=== PATIENT | male | born 1955 ===

== ENCOUNTER 2023-03-09 12:27 | Emergency (ER) | payer MEDICARE, SELFPAY ==
[2023-03-09] VITALS (14 sets, daily range): BP systolic 169–231; BP diastolic 71–104; PULSE 80–98; RESP 9–28; TEMP 36.4; O2SAT 97–100; BMI 23.5
--- NOTE | 2023-03-09 12:41 | DI.CT.S_ITS ---
PROCEDURE: CT ANGIO HEAD AND NECK INDICATIONS: dizzy, TECHNIQUE: After the administration of intravenous contrast, 1 mm thick sections acquired from the aortic arch through the [place] of [place]. 3-dimensional uwwxxca-bdsiefvli-ooxbfycmzg (MIP) and/or volume rendering reformats were acquired of the central intracranial vasculature and neck separately. For radiation dose reduction, the following was used: automated exposure control, adjustment of mA and/or kV according to patient size. COMPARISON: [facility], CT, CT STROKE, 03/09/2023, 12:54. FINDINGS: Image quality: Diagnostic. BRAIN: CSF spaces: Ventricles are normal in size and shape. Basal cisterns are patent. No extra-axial fluid collections. Brain: Note is made of symmetric calcification within the basal ganglia and within the medial cerebellum on both sides, which is considered to be benign. Skull and face: Calvarium and facial bones appear intact, without suspicious lesions. Orbits appear normal. Sinuses: Sinuses and mastoids are clear. HEAD CT ANGIOGRAPHY: Anterior circulation: Intracranial internal carotid arteries demonstrate atherosclerotic irregularity and calcification, with approximately 50% narrowing seen on each side.. The flow within the paired anterior cerebral arteries is normal and symmetric. The flow within the middle cerebral arteries is normal and symmetric. The anterior communicating artery is seen. No aneurysms are seen. Posterior circulation: Visualized portions of the vertebral arteries demonstrate normal caliber, and join to form a normal appearing basilar artery. Flow within the posterior cerebral arteries is normal and symmetric. No aneurysms are seen. NECK CT ANGIOGRAPHY: Carotid system: The great vessels demonstrate a conventional anatomy as they arise from the aortic arch. Atherosclerotic calcification is noted. The origins of the common carotid arteries appear patent. However, there is dense calcification seen involving the left subclavian artery proximally, with 70-80% narrowing. The common carotid arteries demonstrate normal caliber and courses. Atherosclerotic calcification is noted. Relatively prominent atherosclerotic calcification can be seen involving the carotid bifurcation regions. There is approximately 80% stenosis seen involving the right proximal internal carotid artery. There is approximately 70% stenosis involving the left proximal internal carotid artery. The more distal internal carotid arteries demonstrate normal course and caliber. Posterior circulation: There is prominent calcification seen involving the proximal left vertebral artery, with approximately 70% narrowing. Approximately 70% narrowing can be seen involving the right proximal vertebral artery, with [id number] atherosclerotic calcification. The more superior extracranial portions of both vertebral arteries also demonstrate normal courses and calibers. Soft tissues: Visualized neck soft tissues demonstrate no suspicious abnormalities. Bones: No suspicious bony lesions. Visualized cervical spine appears normally aligned. Moderate cervical spine degenerative change can be seen. IMPRESSION: Focal narrowings can be seen involving both carotid bifurcation regions, approximately 80% on the right and approximately 70% on the left. Approximately 70% narrowing can be seen involving the proximal vertebral arteries. Dense calcification can be seen involving the left proximal vertebral artery. There is dense calcification seen involving the proximal left subclavian artery, with 70-80% narrowing. No significant intracranial arterial abnormality is seen. Additional findings: Moderate cervical spine degenerative change Any quantitative measurements of stenosis were performed using NASCET criteria. Dictated by: Sam Leger M.D. on 03/09/2023 at 12:06 Approved by: Sam Leger M.D. on 03/09/2023 at 12:13
--- NOTE | 2023-03-09 12:41 | DI.CT.S_ITS ---
PROCEDURE: CT STROKE INDICATIONS: dizzy, TECHNIQUE: Noncontrast 4.5 mm thick angled axial sections acquired from the foramen magnum to the vertex, with coronal reformats. For radiation dose reduction, the following was used: automated exposure control, adjustment of mA and/or kV according to patient size. COMPARISON: None. FINDINGS: Image quality: Excellent. CSF spaces: Basal cisterns are patent. No extra-axial fluid collections. Ventricles are normal in size and shape. Brain: No midline shift. No intracranial masses or hemorrhage. Liu-white matter interface is normal. Small focus of hypoattenuation in the right frontal lobe. Calcifications in the basal ganglia and bilateral cerebellum. Skull and face: Calvarium and visualized facial bones are intact, without suspicious lesions. Sinuses: Visualized sinuses and mastoids are clear. IMPRESSION: No hemorrhagic infarct. Small focus of hypoattenuation in the right frontal lobe, may indicate evolving or remote infarct. Calcifications of the basal ganglia and cerebellum, probably due to underlying metabolic disorder. Findings discussed with Dr. Jha on 03/09/2023 at 1:09 p.m.. This study fulfills neurological imaging criteria for inclusion or exclusion of acute stroke therapies based on available published neurological imaging guidelines. Dictated by: Sammy Rogers M.D. on 03/09/2023 at 13:04 Approved by: Sammy Rogers M.D. on 03/09/2023 at 13:09
--- NOTE | 2023-03-09 12:49 | PC.NURSE ---
pt states 11:15 was going up and down a ladder on side of his house. Started getting diaphoretic and having trouble finding words. TIA in the past in [facility]. Takes Plavix and a statin daily. h/o pheochromocytoma removal in 1995. Reports being diabetic on/off in his life and is not currently on DM meds however BG for EMS was 395--states he drank OJ and ate mcdSonoss breakfast this morning which is rare for him. last TIA he had his glucose was also very elevated. No weakness endorsed. NIH 0 LAMS 0, swallow screen passed. equal cull grader/pushes. AAOx3 and no slurred speech appreciated.
[2023-03-09 12:52] LABS: Add Manual Diff / Slide Review NO; Basophils Absolute Auto 0 /uL (0-100); Basophils Percent Auto 0.5 % (0-2); Eosinophils Absolute Auto 100 /uL (0-450); Eosinophils Percent Auto 1.2 % (2-4); Hematocrit 39.5 % (41-53); Hemoglobin 13.1 g/dL (13.5-17.5); Lymphocytes Absolute Auto 900 /uL (1100-4500); Lymphocytes Percent Auto 20.1 % (25-40); Mean Corpuscular HGB Conc 33.2 % (30-36); Mean Corpuscular Hemoglobin 28.9 PG (26-34); Mean Corpuscular Volume 86.8 fL (80-100); Monocytes Absolute Auto 200 /uL (0-900); Monocytes Percent Auto 4.5 % (3-14); Neutrophils Absolute Auto 3100 /uL (1500-7000); Neutrophils Percent Auto 73.7 % (50-75); Platelet Count 249 X10^3/uL (150-400); Red Blood Cell Count 4.54 X10^6/uL (4.5-5.9); Red Cell Distribution Width 13.1 % (11.6-14.8); White Blood Cell Count 4.2 X10^3/uL (4.5-11.0)
[2023-03-09 12:55] LABS: Prothrombin Time 11.3 SECONDS (10.1-12.7)
--- NOTE | 2023-03-09 12:55 | ED.NEUROSD ---
HPI - Neuro Symptoms/Deficit General Chief Complaint: Neuro Symptoms/Deficit Stated Complaint: Dizzy, Slurred Speech Time Seen by Provider: 03/09/23 12:41 Source: patient, EMS, RN notes reviewed and old records reviewed Mode of arrival: EMS Limitations: no limitations History of Present Illness HPI Narrative: This is a 67-year-old male with history of prior TIA on Plavix and atorvastatin daily with a remote history of pheochromocytoma. Patient states today about 1125 he was working outdoors up and down a ladder when he got really sweaty he felt very lightheaded like he might pass out and had sort of greenish discoloration of his vision. He states he would about 10 minutes of difficulty with speech. Patient states that he had difficulty texting on his phone he did not appreciate weakness right versus left. He states that he did have difficulty getting his words out and slurred speech. Patient states no headache, no vision changes. He states symptoms totally resolved after about 10-15 minutes. He states he had a very similar event several years ago where he was at when asked she was there for 3 days followed up with their stroke clinic and that was when he was placed on Plavix and atorvastatin. Patient states no fevers or chills. No chest pain or shortness of breath, no nausea or vomiting, no diarrhea constipation, no dysuria urgency or frequency. No difficulty with ambulation. He did not appreciate numbness tingling weakness of his extremities. Patient states he has not had recurrent episodes since then. He had a prior history 1995 for pheochromocytoma. Patient denies any drug allergies. No tobacco, alcohol or illicit accept for once yearly smoking. With additional information patient notes he has a has not seen a physician in 3 or 4 years accept for an urgent care visit he has not been getting regular labs. He is noted to be hyperglycemic he states he used to insulin and was weaned down by his physician and ultimately stopped. He states he thinks he may have had elevated creatinine in the past but he does not know if he has a normal creatinine or not. On Anticoagulants: Yes (plavix) Related Data Allergies Allergy/AdvReac Type Severity Reaction Status Date / Time No Known Drug Allergies Allergy Verified 03/09/23 15:27 Review of Systems Review of Systems ROS Unobtainable: All systems reviewed & are unremarkable except as noted in HPI and below Hematologic/Lymphatic On Anticoagulants: Yes (plavix) Exam Narrative Exam Narrative: GEN: well nourished, well appearing 3, alert and oriented x mild, patient appears to be in no acute distress. HEENT: Atraumatic, pupils are equal round reactive to light, extraocular movements are intact, nares are clear, TMs are clear with no fluid, there is no conjunctival pallor. Throat is clear without any exudates, erythema, tonsillar enlargement or uvular deviation, no facial droop. HEART: Regular rate and rhythm without murmur, clicks, rubs. No carotid bruits, pulses are equal in upper and lower extremities LUNGS:Lungs clear to auscultation, no wheezes, rales, crackles, chest moves symmetrically ABD:bowel sounds normal, soft, non-tender, no guarding, rebound, rigidity, no masses noted, no hepatosplenomegaly :No CVA tenderness MSCL: Non-tender, no muscle atrophy, muscles strength 5/5 upper and lower extremities, full range of motion, normal gait NEURO:CN 2-12 intact, sensation normal, finger nose finger test normal, heel brewer test normal, no dysarthria or aphasia SKIN: No rash, erythema or other skin changes Initial Vital Signs Initial Vital Signs: Vital Signs Pulse Rate 80 03/09/23 12:40 Respiratory Rate 24 03/09/23 12:40 Pulse Oximetry 100 03/09/23 12:40 Scores NIH Stroke Scale Level of Conciousness: Alert, keenly responsive Ask month/age: Answers both questions correctly. Open/close eyes, close hand: Performs both tasks correctly Best gaze horizontal: Normal Visual jaffe: No visual loss Facial palsy: Normal symetrical movement Left arm drift: No drift for full 10 sec Right arm drift: No drift for full 10 sec Left leg drift: No drift for full 5 sec Right leg drift: No drift for full 5 sec Limb ataxia: Absent Sensory on face/arms/legs: Normal, no sensory loss Best language: No aphasia, normal Dysarthria: Normal Extinction or inattention: No abnormality Total NIH Stroke scale score: 0 Course Orders Ordered: Discontinued Medications Aspirin (Aspirin 81 Mg Chew Tab) 324 mg PO NOW ONE Stop: 03/09/23 13:28 Last Admin: 03/09/23 13:42 Dose: 324 mg Documented By: MADAY Clopidogrel Bisulfate (Clopidogrel 75 Mg Tablet) 300 mg PO NOW ONE Stop: 03/09/23 15:56 Last Admin: 03/09/23 16:04 Dose: Not Given Documented By: SB Sodium Chloride (Normal Saline 0.9%) 1,000 mls @ 150 mls/hr IV CONT JOHNNY Last Admin: 03/09/23 13:17 Dose: Not Given Documented By: CTS Sodium Chloride (Normal Saline 0.9%) 1,000 mls @ 1,000 mls/hr IV BOLUS ONE Stop: 03/09/23 14:25 Last Infusion: 03/09/23 15:18 Dose: 0 mls/hr Documented By: Admin: 03/09/23 13:43 Dose: 1,000 mls/hr Documented By: MADAY Vital Signs Vital signs: Vital Signs - 8 hr 03/09/23 12:45 03/09/23 12:40 03/09/23 13:01 Temperature 97.6 F Pulse Rate 82 80 85 Respiratory Rate 16 24 18 Blood Pressure 199/86 H Pulse Oximetry 99 100 100 Oxygen Delivery Method Room Air 03/09/23 13:02 03/09/23 13:02 03/09/23 13:30 Temperature Pulse Rate 86 Respiratory Rate 17 Blood Pressure 169/81 H 193/91 H Pulse Oximetry 99 Oxygen Delivery Method 03/09/23 13:30 03/09/23 14:00 03/09/23 14:01 Temperature Pulse Rate 88 91 H Respiratory Rate 17 10 L Blood Pressure 182/71 H Pulse Oximetry 99 100 Oxygen Delivery Method 03/09/23 14:01 03/09/23 14:50 03/09/23 14:52 Temperature Pulse Rate 91 H 91 H 90 Respiratory Rate 9 L 19 Blood Pressure Pulse Oximetry 100 100 100 Oxygen Delivery Method Room Air 03/09/23 14:52 03/09/23 15:00 03/09/23 15:00 Temperature Pulse Rate 89 Respiratory Rate 18 Blood Pressure 196/88 H 193/90 H Pulse Oximetry 100 Oxygen Delivery Method Room Air 03/09/23 15:15 03/09/23 15:15 03/09/23 15:18 Temperature Pulse Rate 90 Respiratory Rate 15 Blood Pressure 208/85 H 209/98 H Pulse Oximetry 100 Oxygen Delivery Method 03/09/23 15:18 Temperature Pulse Rate 89 Respiratory Rate 17 Blood Pressure Pulse Oximetry 100 Oxygen Delivery Method Room Air MDM - Neuro Symptoms/Deficit Lab Data 03/09/23 12:25 03/09/23 12:25 Labs: Lab Results 03/09/23 03/09/23 03/09/23 Range/Units 12:25 12:25 12:25 WBC 4.2 L (4.5-11.0) X10^3/uL RBC 4.54 (4.5-5.9) X10^6/uL Hgb 13.1 L (13.5-17.5) g/dL Hct 39.5 L (41-53) % MCV 86.8 (80-100) fL MCH 28.9 (26-34) PG MCHC 33.2 (30-36) % RDW 13.1 (11.6-14.8) % Plt Count 249 (150-400) X10^3/uL Neut % (Auto) 73.7 (50-75) % Lymph % (Auto) 20.1 L (25-40) % [place] % (Auto) 4.5 (3-14) % Eos % (Auto) 1.2 L (2-4) % Baso % (Auto) 0.5 (0-2) % Neut # (Auto) 3100 (2550-7115) /uL Lymph # (Auto) 900 L (2333-8747) /uL [place] # (Auto) 200 (0-900) /uL Eos # (Auto) 100 (0-450) /uL Baso # (Auto) 0 (0-100) /uL PT 11.3 (10.1-12.7) SECONDS INR 1.0 (0.9-1.3) APTT 34 (26-36) SECONDS Sodium 132 L (137-145) mmol/L Potassium 5.1 (3.4-5.1) mmol/L Chloride 100 (98-107) mmol/L Carbon Dioxide 23 (22-32) mmol/L BUN 28 H (9-20) mg/dL Creatinine 2.13 H (0.66-1.25) mg/dL Estimated GFR 34 L (>60) mL/min BUN/Creatinine Ratio 13.1 (6-22) Glucose 397 H (80-110) mg/dL Calcium 8.4 (8.4-10.2) mg/dL Total Bilirubin 0.6 (0.2-1.3) mg/dL AST 29 (17-59) IU/L ALT 28 (<50) IU/L Alkaline Phosphatase 88 (38-126) U/L Total Creatine Kinase 96 (55-170) U/L Troponin I 0.016 (0.01-0.034) ng/mL Total Protein 6.6 (6.3-8.2) g/dL Albumin 3.8 (3.5-5.0) g/dL Globulin 2.8 (1.7-4.1) g/dL Albumin/Globulin Ratio 1.4 (1.0-2.8) Urine Color Urine Appearance Urine pH (4.5-8.0) Ur Specific [place] (1.000-1.035) Urine Protein (Negative) Urine Glucose (UA) (Negative) g/dL Urine Ketones (NEGATIVE) Urine Occult Blood (Negative) Urine Nitrate (Negative) Urine Bilirubin (NEGATIVE) Urine Urobilinogen (0.2) E.U./dL Ur Leukocyte Esterase (NEGATIVE) Urine RBC (0-5/HPF) Urine WBC (0-5/HPF) Ur Squamous Epith Cells (0-5/HPF) Urine Bacteria (None) Ur Culture Indicated? Ethyl Alcohol < 10 ( - 10) mg/dL SARS-CoV-2 (PCR) (Negative) 03/09/23 03/09/23 Range/Units 13:48 14:07 WBC (4.5-11.0) X10^3/uL RBC (4.5-5.9) X10^6/uL Hgb (13.5-17.5) g/dL Hct (41-53) % MCV (80-100) fL MCH (26-34) PG MCHC (30-36) % RDW (11.6-14.8) % Plt Count (150-400) X10^3/uL Neut % (Auto) (50-75) % Lymph % (Auto) (25-40) % [place] % (Auto) (3-14) % Eos % (Auto) (2-4) % Baso % (Auto) (0-2) % Neut # (Auto) (2353-6404) /uL Lymph # (Auto) (9260-5719) /uL [place] # (Auto) (0-900) /uL Eos # (Auto) (0-450) /uL Baso # (Auto) (0-100) /uL PT (10.1-12.7) SECONDS INR (0.9-1.3) APTT (26-36) SECONDS Sodium (137-145) mmol/L Potassium (3.4-5.1) mmol/L Chloride (98-107) mmol/L Carbon Dioxide (22-32) mmol/L BUN (9-20) mg/dL Creatinine (0.66-1.25) mg/dL Estimated GFR (>60) mL/min BUN/Creatinine Ratio (6-22) Glucose (80-110) mg/dL Calcium (8.4-10.2) mg/dL Total Bilirubin (0.2-1.3) mg/dL AST (17-59) IU/L ALT (<50) IU/L Alkaline Phosphatase (38-126) U/L Total Creatine Kinase (55-170) U/L Troponin I (0.01-0.034) ng/mL Total Protein (6.3-8.2) g/dL Albumin (3.5-5.0) g/dL Globulin (1.7-4.1) g/dL Albumin/Globulin Ratio (1.0-2.8) Urine Color Yellow Urine Appearance Clear Urine pH 5.5 (4.5-8.0) Ur Specific [place] 1.010 (1.000-1.035) Urine Protein 2+ H (Negative) Urine Glucose (UA) 3+ H (Negative) g/dL Urine Ketones Negative (NEGATIVE) Urine Occult Blood Trace-intact (Negative) Urine Nitrate Negative (Negative) Urine Bilirubin Negative (NEGATIVE) Urine Urobilinogen 0.2 (0.2) E.U./dL Ur Leukocyte Esterase Negative (NEGATIVE) Urine RBC 1-5/hpf (0-5/HPF) Urine WBC None seen (0-5/HPF) Ur Squamous Epith Cells 0-1 /hpf (0-5/HPF) Urine Bacteria None seen (None) Ur Culture Indicated? Cult not indicated Ethyl Alcohol ( - 10) mg/dL SARS-CoV-2 (PCR) Negative (Negative) Point of Care Testing Glucose POC [address] scan - head: Radiologist's Impression: Dr. Sammy Rogers no acute change does have calcifications. [address] [address] [address] Scan Report Signed Patient: Johnnie Duenas MR#: [id number] : 1955 Acct:[id number] Age/Sex: 67 / M Date of Service: 03/09/23 Loc: ED Accession Number: [id number] ?? Procedure: CT Stroke Ordering Provider: Lucy Jha D.O. PROCEDURE:? CT STROKE ? INDICATIONS:? dizzy, ? TECHNIQUE:? Noncontrast 4.5 mm thick angled axial sections acquired from the foramen magnum to the vertex, with coronal reformats.? For radiation dose reduction, the following was used:? automated exposure control, adjustment of mA and/or kV according to patient size.? ? COMPARISON:? None. ? FINDINGS:? Image quality:? Excellent.? ? CSF spaces:? Basal cisterns are patent.? No extra-axial fluid collections.? Ventricles are normal in size and shape.? ? Brain:? No midline shift.? No intracranial masses or hemorrhage.? Liu-white matter interface is normal.? Small focus of hypoattenuation in the right frontal lobe.? Calcifications in the basal ganglia and bilateral cerebellum. ? Skull and face:? Calvarium and visualized facial bones are intact, without suspicious lesions.? ? Sinuses:? Visualized sinuses and mastoids are clear.? ? IMPRESSION:? No hemorrhagic infarct. ? Small focus of hypoattenuation in the right frontal lobe, may indicate evolving or remote infarct. ? Calcifications of the basal ganglia and cerebellum, probably due to underlying metabolic disorder. ? Findings discussed with Dr. Jha on 03/09/2023 at 1:09 p.m.. ? This study fulfills neurological imaging criteria for inclusion or exclusion of acute stroke therapies based on available published neurological imaging guidelines.? ? ? Dictated by: Sammy Rogers M.D. on 03/09/2023 at 13:04 ? ? Approved by: Sammy Rogers M.D. on 03/09/2023 at 13:09?? CTA - brain/neck: Radiologist's Impression: [address] [address] [address] Scan Report Signed Patient: Johnnie Duenas MR#: [id number] : 1955 Acct:[id number] Age/Sex: 67 / M Date of Service: 03/09/23 Loc: ED Accession Number: [id number] ?? Procedure: CT angio head and neck Ordering Provider: Lucy Jha D.O. PROCEDURE:? CT ANGIO HEAD AND NECK ? INDICATIONS:? dizzy, ? TECHNIQUE:? After the administration of intravenous contrast, 1 mm thick sections acquired from the aortic arch through the [place] of [place].? 3-dimensional yqmysfs-etvkgqiws-pwwhirsbxa (MIP) and/or volume rendering reformats were acquired of the central intracranial vasculature and neck separately. For radiation dose reduction, the following was used:? automated exposure control, adjustment of mA and/or kV according to patient size.? ? COMPARISON:? [facility], CT, CT STROKE, 03/09/2023, 12:54. ? FINDINGS:? Image quality:? Diagnostic.? ? BRAIN:? CSF spaces:? Ventricles are normal in size and shape.? Basal cisterns are patent.? No extra-axial fluid collections.? ? Brain:? Note is made of symmetric calcification within the basal ganglia and within the medial cerebellum on both sides, which is considered to be benign. ? Skull and face:? Calvarium and facial bones appear intact, without suspicious lesions.? Orbits appear normal.? ? Sinuses:? Sinuses and mastoids are clear.? ? HEAD CT ANGIOGRAPHY:? Anterior circulation:? Intracranial internal carotid arteries demonstrate atherosclerotic irregularity and calcification, with approximately 50% narrowing seen on each side..? The flow within the paired anterior cerebral arteries is normal and symmetric.? The flow within the middle cerebral arteries is normal and symmetric.? The anterior communicating artery is seen.? No aneurysms are seen.? ? Posterior circulation:? Visualized portions of the vertebral arteries demonstrate normal caliber, and join to form a normal appearing basilar artery.? Flow within the posterior cerebral arteries is normal and symmetric.? No aneurysms are seen.? ? NECK CT ANGIOGRAPHY:? Carotid system:? The great vessels demonstrate a conventional anatomy as they arise from the aortic arch.? Atherosclerotic calcification is noted.? The origins of the common carotid arteries appear patent.? However, there is dense calcification seen involving the left subclavian artery proximally, with 70-80% narrowing.? The common carotid arteries demonstrate normal caliber and courses.? Atherosclerotic calcification is noted.? ? Relatively prominent atherosclerotic calcification can be seen involving the carotid bifurcation regions.? There is approximately 80% stenosis seen involving the right proximal internal carotid artery.? There is approximately 70% stenosis involving the left proximal internal carotid artery. The more distal internal carotid arteries demonstrate normal course and caliber.? ? Posterior circulation:? There is prominent calcification seen involving the proximal left vertebral artery, with approximately 70% narrowing.? Approximately 70% narrowing can be seen involving the right proximal vertebral artery, with [id number] atherosclerotic calcification.? The more superior extracranial portions of both vertebral arteries also demonstrate normal courses and calibers.? ? Soft tissues:? Visualized neck soft tissues demonstrate no suspicious abnormalities.? ? Bones:? No suspicious bony lesions.? Visualized cervical spine appears normally aligned.? Moderate cervical spine degenerative change can be seen. ? ? IMPRESSION:? Focal narrowings can be seen involving both carotid bifurcation regions, approximately 80% on the right and approximately 70% on the left. ? Approximately 70% narrowing can be seen involving the proximal vertebral arteries.? Dense calcification can be seen involving the left proximal vertebral artery. ? There is dense calcification seen involving the proximal left subclavian artery, with 70-80% narrowing.? ? No significant intracranial arterial abnormality is seen. ? ? ? Additional findings:? Moderate cervical spine degenerative change ? Any quantitative measurements of stenosis were performed using NASCET criteria.? ? ? Dictated by: Sam Leger M.D. on 03/09/2023 at 12:06 ? ? Approved by: Sam Leger M.D. on 03/09/2023 at 12:13?? MR brain: Radiologist's Impression: Johnnie Duenas??67??M??1955 ? Allergy/Adv: No Known Drug Allergies Close Brain MRI (Signed) Andrez Granado - 03/09/23 Renal Ultrasound (Signed) Sammy Rogers - 03/09/23 Head/Neck CTA (Signed) Sam Leger - 03/09/[address] (Signed) Sammy Rogers - 03/09/23 Launch?[address] [address] Magnetic Resonance Report Signed Patient: Johnnie Duenas MR#: [id number] : 1955 Acct:[id number] Age/Sex: 67 / M Date of Service: 03/09/23 Loc: ED Accession Number: [id number] ?? Procedure: MR head/brain wo con Ordering Provider: Lucy Jha D.O. PROCEDURE:? MR HEAD/BRAIN WO CON ? INDICATIONS:? speech changes, vision changes resolved. ? TECHNIQUE:? Non-contrast axial T1 spin echo, axial T2 fast spin echo, sagittal and axial FLAIR, coronal T2 fast spin echo, axial gradient echo, axial diffusion and ADC through the brain.? ? COMPARISON:? [facility], CT, CT ANGIO HEAD AND NECK, 03/09/2023, 12:54. ? FINDINGS:? Image quality:? Excellent.? ? CSF spaces:? Ventricles appear symmetric in size and shape.? Basal cisterns are patent.? No extra-axial fluid collections.? ? Brain:? No intracranial bleeds or mass effects.? There is cerebral volume loss for age.? There are [id number] periventricular and deep white matter chronic small vessel ischemic changes.? Brainstem appears normal.? Diffusion-weighted images show no acute ischemic insults.? Very small old focal posterior right frontal right MCA distribution infarct.? Normal intravascular flow voids are present.? ? Skull and face:? Calvarial bone marrow is normal in signal.? Orbits are normal.? ? Sinuses:? Sinuses and mastoids are clear.? ? IMPRESSION:? ? 1. 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 ? 2. Age-related volume loss and [id number] small vessel ischemic change. ? 3. No acute intracranial process.? ? ? Dictated by: Andrez Granado M.D. on 03/09/2023 at 14:47 ? ? Approved by: Andrez Granado M.D. on 03/09/2023 at 14:50? renal US: Radiologist's Impression: Close Brain MRI (Signed) Andrez Granado - 03/09/23 Renal Ultrasound (Signed) Sammy Rogers - 03/09/23 Head/Neck CTA (Signed) Sam Leger - 03/09/[address] (Signed) Sammy Rogers - 03/09/23 Launch?Image [address] [address] Ultrasound Report Signed Patient: Johnnie Duenas MR#: [id number] : 1955 Acct:[id number] Age/Sex: 67 / M Date of Service: 03/09/23 Loc: ED Accession Number: [id number] ?? Procedure: US renal complete Ordering Provider: Lucy Jha D.O. PROCEDURE:? US RENAL COMPLETE ? INDICATIONS:? ABNORMAL RENAL LABS. ?ANNABEL VS CKD. H/O PHEOCHROMOCYTOMA ? TECHNIQUE:? Real-time scanning was performed of the kidneys and bladder, with image documentation.? ? COMPARISON:? None. ? FINDINGS:? ? Kidneys:? Kidneys are normal in size.? Right kidney measures 9.0 cm long; left kidney measures 11.0 cm long.? Right renal cortical thickness is 1.9 cm; left renal cortical thickness is 1.4 cm.? Renal cortical echotexture is normal.? No hydronephrosis or nephrolithiasis.? Lobulated contour.? On the midpole of the right kidney, there is a heterogeneous lobulation, measuring 2.1 x 2.6 x 1.7 cm, best seen on the cine clips. No complex renal cystic lesions which require follow-up. ? Bladder:? Pre-void bladder volume is 426 mL.? Post-void residual is 42 mL.? Pre-void images demonstrate no intraluminal masses or stones.? On pre-void images, bilateral ureteral jets are noted with color Doppler interrogation.? (Of note, ureteral jets may not be detectable in up to 25% of cases due to insufficient differences in specific gravity between ureteral and bladder urine).? ? Miscellaneous:? No free pelvic fluid.? ? IMPRESSION:? No hydronephrosis. ? On the midpole of the right kidney, there is a heterogeneous lobulation, measuring 2.1 x 2.6 x 1.7 cm.? This probably represents normal renal parenchyma, although underlying mass is not entirely excluded.? Recommend outpatient CT or MRI for confirmation (renal mass protocol). ? ? Dictated by: Sammy Rogers M.D. on 03/09/2023 at 14:36 ? ? Approved by: Sammy Rogers M.D. on 03/09/2023 at 14:41?? ECG Data Attestation: I personally reviewed and interpreted this ECG as follows: Interpretation: Sinus rhythm first-degree AV block rate 80 9p are 214 QRS of 98 QTC 462[address] No acute ST elevation depression. MDM Narrative Medical decision making narrative: This is a 67-year-old male on Plavix daily who had what sounds like a TIA episode symptoms have resolved. Patient states very similar to an episode he had 3 years ago, remote history of pheochromocytoma 1995 with surgical treatment. Patient is on Plavix and atorvastatin, he is hyperglycemic and hypertensive today. Patient is not current tPA candidate secondary to complete resolution of symptoms Initial non-con head CT is negative, CT angio showed focal narrowings involving both carotid bifurcations regions 80% on right, 70% on left, approximately 70% narrowing involving the proximal vertebral arteries and dense calcification involving the left proximal vertebral artery. Dense calcifications seen involving the proximal left subclavian artery with 70 80% narrowing. No significant intracranial arterial abnormality is seen. MR shows old infarct but no acute or subacute infarct today. Renal ultrasound was obtained secondary to elevated creatinine, per patient he has maybe had waxing and waning renal function in the past but has not followed at least 2-3 years with his labs. On the midpole right kidney there is a heterogeneous lobulation measuring 2.1 x 2.6 x 1.7 cm probably represents normal renal parenchyma although underlying mass not entirely excluded and should be followed up. Reviewed these findings with patient. Neurology, [facility]: They recommend revascularization if patient is not agreeable would recommend dual antiplatelet therapy aspirin 324 mg today along with 100 mg Plavix followed by 81 mg daily and 75 mg of Plavix times 21 days. Goal blood pressure is less than 220/110 with slow decreasing over 24 hours and ultimately over 1-2 weeks. Spoke with patient reviewed all of his findings today. He is agreeable for intervention but states he has to take care of things at home first. He has family/friend at bedside who offered to take care of these activities. Patient politely declines. He would like to go to facility for revascularization he is open to this and additional intervention but states he will drive by private auto. He is clear that this is against medical advice and if his blood pressure becomes significantly out of control or he has additional stroke episode while transporting could have significant disability or . Patient expresses his understanding states he did this last time he had a stroke. He would prefer to self presented the facility rather than staying overnight or transported via ambulance or airlift. Patient was discharged with packet of his information. I did recontact neurology to update that patient is agreeable for revascularization but does not wish to be transported via EMS and has some things he needs to take it at home before he presents. They asked that he present to [facility] ED. Did discuss that this is a left with against medical advice and then he is not being transferred at this time. Patient and friend at bedside both expressed their understanding. Discharge Plan Departure Patient Disposition: Left Against Medical Advice Clinical Impression: TIA (transient ischemic attack), Creatinine elevation, Hyperglycemia, Renal mass, right Activity Restrictions/Additional Instructions: You are not being transferred today and it is recommended that you be by EMS to [facility] for revascularization. You have elected to leave against medical advice, there is a chance you could have a serious stroke and have permanent disability or while you are getting herself to the other hospital and it is not recommended to go by private auto. I did speak with Neurology, they are aware of your plan they ask that [facility] [facility]. Please take the packet that is provided along with the discs of imaging with you. Please go to the nearest facility if you have sudden worsening symptoms, loss of consciousness, chest pain, shortness of breath, persistent vomiting or other new or concerning changes. Stand Alone Forms: Against Medical Advice
[2023-03-09 12:57] LABS: PTT Partial Thromboplastin Tim 34 SECONDS (26-36)
[2023-03-09 13:21] LABS: Alanine Aminotransferase 28 IU/L (<50); Albumin 3.8 g/dL (3.5-5.0); Albumin Globulin Ratio 1.4 (1.0-2.8); Alkaline Phosphatase 88 U/L (38-126); Aspartate Aminotransferase 29 IU/L (17-59); BUN Creatinine Ratio 13.1 (6-22); Bilirubin Total 0.6 mg/dL (0.2-1.3); Blood Urea Nitrogen 28 mg/dL (9-20); Calcium 8.4 mg/dL (8.4-10.2); Carbon Dioxide 23 mmol/L (22-32); Chloride 100 mmol/L (98-107); Creatine Kinase 96 U/L (55-170); Estimated Glomerular Filt Rate 34 mL/min (>60); Ethanol (ETOH) < 10 mg/dL; Globulin 2.8 g/dL (1.7-4.1); Glucose 397 mg/dL (80-110); HEMOLYSIS < 15 (0-50); Potassium 5.1 mmol/L (3.4-5.1); Sodium 132 mmol/L (137-145); Total Protein 6.6 g/dL (6.3-8.2)
--- NOTE | 2023-03-09 13:26 | DI.US.S_ITS ---
PROCEDURE: US RENAL COMPLETE INDICATIONS: ABNORMAL RENAL LABS. ?ANNABEL VS CKD. H/O PHEOCHROMOCYTOMA TECHNIQUE: Real-time scanning was performed of the kidneys and bladder, with image documentation. COMPARISON: None. FINDINGS: Kidneys: Kidneys are normal in size. Right kidney measures 9.0 cm long; left kidney measures 11.0 cm long. Right renal cortical thickness is 1.9 cm; left renal cortical thickness is 1.4 cm. Renal cortical echotexture is normal. No hydronephrosis or nephrolithiasis. Lobulated contour. On the midpole of the right kidney, there is a heterogeneous lobulation, measuring 2.1 x 2.6 x 1.7 cm, best seen on the cine clips. No complex renal cystic lesions which require follow-up. Bladder: Pre-void bladder volume is 426 mL. Post-void residual is 42 mL. Pre-void images demonstrate no intraluminal masses or stones. On pre-void images, bilateral ureteral jets are noted with color Doppler interrogation. (Of note, ureteral jets may not be detectable in up to 25% of cases due to insufficient differences in specific gravity between ureteral and bladder urine). Miscellaneous: No free pelvic fluid. IMPRESSION: No hydronephrosis. On the midpole of the right kidney, there is a heterogeneous lobulation, measuring 2.1 x 2.6 x 1.7 cm. This probably represents normal renal parenchyma, although underlying mass is not entirely excluded. Recommend outpatient CT or MRI for confirmation (renal mass protocol). Dictated by: Sammy Rogers M.D. on 03/09/2023 at 14:36 Approved by: Sammy Rogers M.D. on 03/09/2023 at 14:41
--- NOTE | 2023-03-09 13:27 | DI.MRI.S_ITS ---
PROCEDURE: MR HEAD/BRAIN WO CON INDICATIONS: speech changes, vision changes resolved. TECHNIQUE: Non-contrast axial T1 spin echo, axial T2 fast spin echo, sagittal and axial FLAIR, coronal T2 fast spin echo, axial gradient echo, axial diffusion and ADC through the brain. COMPARISON: [facility], CT, CT ANGIO HEAD AND NECK, 03/09/2023, 12:54. FINDINGS: Image quality: Excellent. CSF spaces: Ventricles appear symmetric in size and shape. Basal cisterns are patent. No extra-axial fluid collections. Brain: No intracranial bleeds or mass effects. There is cerebral volume loss for age. There are [id number] periventricular and deep white matter chronic small vessel ischemic changes. Brainstem appears normal. Diffusion-weighted images show no acute ischemic insults. 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 Normal intravascular flow voids are present. Skull and face: Calvarial bone marrow is normal in signal. Orbits are normal. Sinuses: Sinuses and mastoids are clear. IMPRESSION: 1. 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 2. Age-related volume loss and [id number] small vessel ischemic change. 3. No acute intracranial process. Dictated by: Andrez Granado M.D. on 03/09/2023 at 14:47 Approved by: Andrez Granado M.D. on 03/09/2023 at 14:50
[2023-03-09 13:32] LABS: Troponin I 0.016 ng/mL (0.01-0.034)
[2023-03-09] MEDS: ASPIRIN 81 MG CHEW TAB 324 MG PO (13:42)
[2023-03-09] MEDS: SODIUM CHLORIDE 0.9% 1,000 ML 1000 ML IV (13:43)
[2023-03-09 14:17] LABS: Appearance Urine UA CLEAR; Bilirubin Urine UA NEGATIVE (NEGATIVE); Color Urine UA YELLOW; Glucose Urine UA 3+ g/dL (Negative); Ketones Urine UA NEGATIVE (NEGATIVE); Leukocyte Esterase Urine UA NEGATIVE (NEGATIVE); Nitrite Urine UA NEGATIVE (Negative); Occult Blood Urine UA TRACE-INTACT (Negative); Protein Urine UA 2+ (Negative); Urobilinogen Urine UA 0.2 E.U./dL (0.2); pH Urine UA 5.5 (4.5-8.0)
[2023-03-09 14:18] LABS: COVID19 -Nasal RAPID Negative (Negative)
[2023-03-09 14:22] LABS: Bacteria Urine None Seen; Culture Indicated Urine Cult Not Indicated; RBC Urine 1-5/HPF (0-5/HPF); Squamous Epithelial Cell Urine 0-1 /HPF (0-5/HPF); WBC Urine None Seen (0-5/HPF)
--- NOTE | 2023-03-09 15:39 | PC.NURSE ---
Provider made aware of patient's vitals.
== END 2023-03-09 16:10 | disposition left against medical advice (07) ==
PROVIDERS: Emergency Provider Emergency Medicine
DX: G45.9 Transient cerebral ischemic attack, unspecified (principal); R73.9 Hyperglycemia, unspecified; R79.89 Other specified abnormal findings of blood chemistry; R42 Dizziness and giddiness; N28.89 Other specified disorders of kidney and ureter; Z79.01 Long term (current) use of anticoagulants; Z20.822 Contact with and (suspected) exposure to COVID-19
CPT/HCPCS: 36415; 70450; 70496; 70498; 70551; 76770; 80053; 80320; 81001; 82550; 82962; 84484; 85025; 85610; 85730; 87635; 93005; 99285; C9803; Q9967